=== PATIENT | male | born 1960 | race Caucasian/White ===

== ENCOUNTER 2017-05-05 05:38 | Day surgery (SDC) | payer OTHER ==
[2017-05-04 14:20] VITALS: BMI 26.4
[~2017-05-05] VITALS: Ht 185.4 cm; Wt 92.0 kg
[2017-05-05] VITALS (12 sets, daily range): BP systolic 100–137; BP diastolic 57–85; PULSE 51–57; RESP 18; Ht 185.4 cm; Wt 92.0 kg
[~2017-05-05 05:38] MED LIST: AMLO-147 PO; ASPI81TA3 PO; ATOR80TA75 PO; BENA20TA48 PO; CLOP300T15 PO; HYDR25TA6 PO
--- NOTE | 2017-05-05 06:17 | RADRPT ---
PROCEDURE: XR Chest. CLINICAL INDICATION: Preop TECHNIQUE: A single AP view of the chest was obtained. COMPARISON: None available FINDINGS: Lung volumes are low with compressive changes and crowding of the central pulmonary vascular marking s with bibasilar atelectasis . No focal airspace opacity, pleural effusion or pneumothorax is seen. The cardiomediastinal silhouette is within normal limits for size. The osseous structures demonstr ate senescent changes. IMPRESSION: Low lung volumes with compressive changes and bibasilar atelectasis. RPTAT: HH .Yola Holguin MD, Date Time Electronically viewed and signed by .Yola Holguin MD, on 05/05/2017 06:16 .G/
[2017-05-05 06:40] LABS: BASOPHIL # 0.1 10^3/ul (0.0-0.1); BASOPHILS % 0.6 % (0.0-2.0); EOSINOPHILS # 0.2 10^3/ul (0.0-0.5); EOSINOPHILS % 2.5 % (0.0-7.0); HEMATOCRIT 36.3 % (42.0-52.0); HEMOGLOBIN 12.7 g/dl (14.0-18.0); LYMPHOCYTES # 2.8 10^3/ul (0.8-2.9); LYMPHOCYTES % 34.4 % (15.0-51.0); MEAN CORPUSCULAR HEMOGLOBIN 34.4 pg (29.0-33.0); MEAN CORPUSCULAR VOLUME 98.4 fl (82.0-101.0); MEAN PLATELET VOLUME 10.2 fl (7.4-10.4); MONOCYTE # 0.7 10^3/ul (0.3-0.9); MONOCYTES % 9.1 % (0.0-11.0); NEUTROPHIL # 4.2 10^3/ul (1.6-7.5); PLATELET COUNT 181 10^3/UL (140-415); RED BLOOD COUNT 3.69 10^6/ul (4.70-6.10); RED CELL DISTRIBUTION WIDTH 12.5 % (11.5-14.5)
[2017-05-05 06:56] LABS: INR 1.01; PROTIME 13.4 Sec (11.9-14.9)
[2017-05-05 07:05] LABS: PARTIAL THROMBOPLASTIN TIME 37.1 Sec (25.0-35.0)
[2017-05-05] MEDS ORDERED: LIDOCAINE 1% (MDV) 20 ML INJ ONE (07:14)
[2017-05-05] MEDS ORDERED: IODIXANOL LOCM 100 ML BTL ONE (07:14)
[2017-05-05] MEDS ORDERED: FENTAnyl 50 MCG/ML VIAL ONE (07:14)
[2017-05-05] MEDS ORDERED: MIDAZOLAM 1 MG/ML 2 ML INJ ONE (07:14)
[2017-05-05] MEDS ORDERED: IODIXANOL LOCM 50 ML BTL ONE (07:14)
[2017-05-05 07:16] LABS: CALCIUM 9.6 mg/dl (8.4-10.2); CREATININE 0.86 mg/dl (0.61-1.24); POTASSIUM 3.6 mmol/L (3.5-5.1)
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
--- NOTE | 2017-05-05 08:17 | PDOCDIS ---
Discharge Instructions DIAGNOSIS Discharge Diagnosis LLE DISABLING CLAUDICATION CONDITION Patient Condition: Good HOME CARE INSTRUCTIONS: Diet Instructions: Low Fat /Cholesterol ACTIVITY: Activity Restrictions: Avoid heavy lifting Do not Drive Do not operate Machinery Do not operate Power Tool Avoid Heavy Housework Bathing Restrictions: Shower FOLLOW UP/APPOINTMENTS Follow-up Plan FOLLOWUP IN 2 WEEKS SOREN SHOWER TOMORROW MAY REMOVE DRESSING JUAN PETER MD May 05, 2017 08:17
[2017-05-05] MEDS ORDERED: SOD CHLORIDE 0.45% 1,000 ML IV SCH (08:18)
--- NOTE | 2017-05-05 08:20 | SIPON ---
Date/Time of Note Date/Time of Note DATE: 05/05/17 TIME: 08:19 Operative Report Preoperative Diagnosis LLE DISABLING CLAUDICATION Postoperative Diagnosis SAME Operation/Procedure Performed AORTOILIAC ANGIOGRAM WITH BILATERAL LOWER EXTREMITY RUNOFFS Surgeon see signature line autopsy assistant NONE Anesthesia: moderate sedation Estimated blood loss: minimal Transfusion Required none Specimen NONE Grafts/Implants none Complications none JUAN PETER MD May 05, 2017 08:20
[2017-05-05] MEDS ORDERED: ONDANSETRON 4 MG INJ IV PRN (08:30)
--- NOTE | 2017-05-05 10:12 | OPR ---
DATE OF OPERATION: 05/05/2017 SURGEON: Malcom Ordonez MD PREOPERATIVE DIAGNOSIS: Left lower extremity disabling claudication. POSTOPERATIVE DIAGNOSIS: Left lower extremity disabling claudication. ANESTHESIA: Local with moderate sedation. ESTIMATED BLOOD LOSS: Minimal. COMPLICATIONS: None. HEPARIN: None. CONTRAST: As recorded. ACCESS: Right common femoral artery 5-[place] sheath. CLOSURE: Manual compression. SEDATION: Under physician supervision, moderate sedation was administered intravenously under stefanie nuous monitoring by the interventional team and attending physician. Pulse oximeter, heart rate and blood pressures were continuously monitored by the interventional surgeon. The physician spent payton e was 30 minutes of [id number] sedation time with the patient. INDICATIONS: This is a 57-year-old gentleman, smoker who has been smoking for nearly 30 years, who was referred to us for evaluation of left lower extremity disabling claudication. Of note, the jen ent has had a history of aortoiliac occlusive disease with bilateral lower extremity atherosclerosis in which he underwent aortobifemoral bypass at [facility] and had a right fem AK pop bypas s PTFE. Over the past year, the patient had developed significant left lower extremity, hip pain, b ack pain and disabling claudication in which he is not able to walk more than 10 steps. Patient had been managed with steroid injections for his back pain and his hip pain and underwent hip arthropla sty, but still his disabling claudication has not improved. Patient had mentioned on numerous occas ions during our conversation that he can no longer live like this and he would rather than suffe r with the pain of this disabling claudication. We have provided the patient with smoking cessation plan and intervention and the patient has done quite well, as he was a 1 pack per day smoker and rodriguez s cut down to about 2 to 3 cigarettes a day. Further, the patient underwent a CT angiography which had identified patient having patent aortobife moral bypass in its proximal aspect; however, the left iliac limb is completely occluded. The patie nt did appear to have reconstitution of the superficial femoral artery; however, the patient prosthe sis was developing significant artifact in which there was no clear delineation of the common femora l artery, profunda femoral artery and superficial femoral artery under our proximal aspects. Theref ore, an angiogram was suggested. The patient understood the risks, benefits and alternatives of wha t was discussed and had agreed to proceed with the procedure. Risks including but not limited to bl eeding, thrombosis, embolization, myocardial infarction, , device malfunction, infection, nephr otoxicity, and patient has agreed to proceed. PROCEDURE: 1. Ultrasound-guided axis of the right common femoral artery image recorded. 2. Introduction of catheter into the aorta. Aortoiliac angiogram. 3. Bilateral lower extremity angiogram. FINDINGS: 1. The suprarenal aorta is on patent, infrarenal aorta is patent. 2. The proximal aspect of the aortobifemoral bypass is patent. 3. Bilateral renal arteries are patent. 4. Extensors renal arteries are patent, which are multiple. 5. Right iliac limb is patent. 6. Left iliac limb is occluded. 7. Right external iliac artery with moderate disease. 8. Right profunda femoral artery is patent. 9. Right fem AK pop is patent. 10. Multiple collateralization in the pelvic circulation which provides reconstitution of the left external iliac artery that has mild to moderate disease. 11. The right common femoral artery with moderate to severe stenosis. The left profunda femoral ar elizabeth is patent. Left superficial femoral artery is patent with mild to moderate disease. 12. Left above-knee popliteal artery is patent with mild to moderate disease, left at knee poplitea l artery with mild disease. Right above-knee popliteal artery is mild disease. Right at knee popli teal artery is patent. Right AK pop graft is patent. 13. Right superficial femoral artery is occluded. 14. Right below-knee popliteal artery is patent. 15. Left below knee popliteal artery is patent. 16. Right posterior tibial artery is patent down to the ankle. 17. Right anterior tibial artery seems to be patent; however, poorly visualized. 18. Left posterior tibial artery appears to be patent. 19. The other tibial vessels are not well visualized on the left. DESCRIPTION OF PROCEDURE: The patient was brought into the angio suite where he was positioned in s upine position on the fluoroscopic table. Moderate sedation was administered without any complicati ons. The right groin was shaved, prepped and draped in the usual standard sterile fashion. Time ou t and appropriate sites were marked and confirmed. Local anesthesia was then infiltrated in the reg ion of the right common femoral artery. The artery was then cannulated with a micro access needle u nder ultrasound guidance and a guidewire was advanced into the iliac artery under fluoroscopic mode howiee. This was recorded. The needle was then removed and a catheter was placed. A NAU [place] wire was then passed into the infr arenal aorta under fluoroscopic guidance followed by a short 5-[place] sheath over the wire. The she ath was then appropriately flushed with heparinized saline solution. Omniflush catheter was then pa ssed into the suprarenal aorta and aortoiliac gram was performed. Imaging of the bilateral iliac ar teries was also identified. Findings are noted above. At this point, it was identified the patient 's left iliac limb of the aortobifemoral bypass is occluded. Therefore, the Omniflush catheter was kept in the distal aspect of the aortobifemoral bypass graft and the bilateral iliofemoral angiogram was performed. Findings are noted above. Further this was performed with performing bilateral low er extremity angiograms as well, with runoffs. Patient tolerated this aspect of the procedure well and it was identified that no further interventions can be done at this time, the patient would requ fabi an open vascular intervention with either a fem-fem, aorto-fem, or X-uni-fem bypass. All sheath s, catheters and wires were removed. Manual compression was held in the right groin for the appropr iate amount of time. Patient tolerated the procedure well and was taken to the postanesthesia care unit in stable condition. PLAN: We will plan to discuss the findings with our patient. We will plan to also have our patient to be optimized from a vascular surgery standpoint and continue with his smoking cessation. We ced l have the patient continue with his physical activity exercises and will await for his optimization and hopefully that he can improve. The patient has expressed that he can no longer live like this and this has completely hampered his life. He is willing to in order to not suffer in this [facility] er. We will have this discussion with him again in order for him to better understand in regards to his optimization. Dictated By: MALCOM HERRERA/CHARLY Conf#: [id number] DID#: [id number]
--- NOTE | 2017-05-05 21:48 | RADRPT ---
Vent Rate: 51 bpm RR Interval: 0 msec AR Interval: 150 msec QRS Duration: 90 msec QT Interval: 454 msec QTC Interval: 418 msec P-R-T [place]: 68 - -1 - 61 degrees Sinus bradycardia Otherwise normal ECG Electronically Signed By: Lan Zamora [id number]
== END 2017-05-05 13:30 | disposition home or self-care (01) ==
LOC: SDS 05:38
PROVIDERS: ATTEND Student in an Organized Health Care Education/Training Program
DX: I70.212 Atherosclerosis of native arteries of extremities with intermittent claudication, left leg (principal)
CPT/HCPCS: 36200; 71010; 80048; 85025; 85610; 85730; 93005; J1644; J2250; J3010; Q9967; Z7610

== ENCOUNTER 2018-04-27 06:02 | Inpatient (IN) | END 2018-04-29 13:06 | disposition home or self-care (01) | DRG 269 ==